=== PATIENT | female | born 1985 | race Caucasian/White ===

== ENCOUNTER 2016-05-27 11:18 | Inpatient (IN) | payer OTHER ==
[~2016-05-27] VITALS: Ht 157.5 cm; Wt 57.7 kg
[2016-05-27 12:08] LABS: MEAN CORPUSCULAR HEMOGLOBIN 28.2 pg (27.0-33.0); MEAN CORPUSCULAR HGB CONC 31.6 g/dl (32.0-36.5); MEAN CORPUSCULAR VOLUME 89.4 fl (80.0-96.0); RED CELL DISTRIBUTION WIDTH 14.5 % (11.5-14.5); WHITE BLOOD COUNT 4.9 K/mm3 (4.0-10.0)
[2016-05-27 12:12] LABS: AMPHETAMINES LEVEL URINE NEGATIVE (NEGATIVE); BENZODIAZEPINES URINE NEGATIVE (NEGATIVE); COCAINE METABOLITE URINE NEGATIVE (NEGATIVE); CONTROL LINE INT CTR LINE PRESENT; METHADONE URINE NEGATIVE (NEGATIVE); OPIATES URINE NEGATIVE (NEGATIVE); TRICYCLIC ANTIDEPRESS URINE NEGATIVE (NEGATIVE)
[2016-05-27 12:34] LABS: ALBUMIN 3.9 GM/DL (3.2-5.2); ALBUMIN/GLOBULIN RATIO 1.11 (1.00-1.93); ALKALINE PHOSPHATASE 79 U/L (45-117); ALT/SGPT 15 U/L (12-78); ANION GAP 9 MEQ/L (8-16); AST/SGOT 11 U/L (15-37); BILIRUBIN,DIRECT 0.2 MG/DL (0.0-0.2); BILIRUBIN,TOTAL 0.5 MG/DL (0.2-1.0); BLOOD UREA NITROGEN 16 MG/DL (7-18); CALCIUM LEVEL 9.1 MG/DL (8.5-10.1); CARBON DIOXIDE LEVEL 27 MEQ/L (21-32); CHLORIDE LEVEL 106 MEQ/L (98-107); CREATININE FOR GFR 0.71 MG/DL (0.55-1.02); GLOMERULAR FILTRATION RATE > 60.0 (>60); GLUCOSE, FASTING 87 MG/DL (70-105); SODIUM LEVEL 142 MEQ/L (136-145); TOTAL PROTEIN 7.4 GM/DL (6.4-8.2)
[2016-05-27] MEDS ORDERED: IBUPOTC PO (14:34)
--- NOTE | 2016-05-27 16:09 | EDDOCDS ---
Physician Documentation [facility] Name: Lilibeth Mcneill Age: 30 yrs Sex: Female : 1985 Arrival Date: 05/27/2016 Time: 11:18 Bed [facility] MD: Yousuf Bird MD Disposition: 05/27 16:03 Critical Care: Critical care not applicable. pc Disposition: 05/27/16 16:04 Hospitalization ordered by Jose Manuel Escamilla for Inpatient Admission. Preliminary diagnosis are Major depressive disorder, recurrent, moderate, Suicidal ideations. - Bed requested for Admit. - Status is Inpatient Admission. kcs - Condition is Stable. - Problem is new. - Symptoms are unchanged. HPI: 12:23 This 30 yrs old Female presents to ER via Walkin/Carried/Asstd with complaints of Psych pc Problem. 12:23 The history is obtained from the patient. The patient presents to the emergency pc department with suicidal ideation, depression. 16:00 She was brought in by police after calling a clinic and making SI statements. She is pc tearful and admits to SI. The patient has not experienced similar symptoms in the past. Historical: - Allergies: Morphine (Hives, Swelling); - Home Meds: 1. none - PMHx: Anxiety; Depression; Bipolar disorder; - PSHx: ; Lumpectomy- Left; - The history from nurses notes was reviewed: and I agree with what is documented. - Social history: Smoking status: Patient states former smoker of tobacco. No barriers to communication noted, The patient speaks fluent Arabic, Patient uses street drugs, marijuana. - : The pt / caregiver states he / she is not on anticoagulants. Home medication list is obtained from the patient. - Hospitalizations: : No recent hospitalization is reported. - Exposure Risk Screening:: None identified. - Immunization history:: All immunizations up-to-date. - Family history: Not pertinent. - Social history:: the patient smokes cigarettes the patient drinks alcohol. 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 The psychiatric and neurological components pc are also addressed in the HPI. Exam: 16:03 General Appearance: alert, mild distress. pc 16:03 ENT: ear, nose and throat normal, pharynx normal. 16:03 Eyes: pupils equal, round and reactive to light, extraocular motions intact. 16:03 Neck: The exam reveals no acute abnormalities. ROM is normal and painless. No nuchal rigidity is noted.. 16:03 Respiratory: breathing is even and unlabored, breath sounds are normal. 16:03 Cardiovascular: regular pulse rate, regular heart rhythm, normal heart sounds, equal and full pulses bilaterally. 16:03 Abdomen: soft, non-tender, no organomegaly, normal bowel sounds. 16:03 Skin: skin color is normal, warm, dry. 16:03 Extremities: The extremities have a grossly normal appearance, are non-tender, without acute ROM abnormalities. 16:03 Neuro: alert, oriented to person, place and time, cranial nerves normal as tested, no motor deficits, no sensory deficits. 16:03 Psych: mood is depressed, suicidal, tearful, affect is flat. Vital Signs: 11:19 BP 134 / 84; Pulse 59; Resp 18; Temp 97.1; Pulse Ox 99% ; Weight 52.16 kg / 114.99 lbs; kcs Height 5 ft. 2 in. (157.48 cm); Pain 0/10; 16:06 BP 136 / 78; Pulse 60; Resp 18; Temp 97.2; Pulse Ox 97% on R/A; dpm 11:19 Body Mass Index 21.03 (52.16 kg, 157.48 cm) kcs MDM: 11:43 Consult PFS/PSA/Topographical Engineer ordered. kcs 11:43 Consult PFS/PSA/Topographical Engineer: Patient's case requires discussion with on-call kcs Psychiatrist ordered. 11:43 PSA/PFS to call Nursing Insurance Producer, to enter patient data on [place] Safe Act if patient kcs involuntarily admitted or transferred for SI or HI ordered. 11:43 Confirm accurate psychiatric medication list and times of last dosage ordered. kcs 11:43 Detain Pt Until Medically/PFS Cleared ordered. kcs 11:44 Acetaminophen Level Ordered. EDMS 11:44 Basic Metabolic Profile Ordered. EDMS 11:44 Complete Blood Count Ordered. EDMS 11:44 Drug Eval Toxicology ED Only Ordered. EDMS 11:44 Ethyl Alcohol (ethanol) Ordered. EDMS 11:44 Liver Profile Ordered. EDMS 11:44 Salicylate Level Ordered. EDMS 11:44 Thyroid Stimulating Hormone Ordered. EDMS 11:54 REGULAR DIET PLASTIC TEJEDA+DIET ordered. EDMS 12:35 Financial registration complete. mm15 12:53 [facility] Payment Agreement was scanned into [employer] and attached to record. mm15 13:38 Admit to IM: ordered. EDMS 13:40 Acetaminophen Level Reviewed. pc 13:40 Complete Blood Count Reviewed. pc 13:40 Drug Eval Toxicology ED Only Reviewed. pc 13:40 Liver Profile Reviewed. pc 13:40 Salicylate Level Reviewed. pc 13:40 Basic Metabolic Profile Reviewed. pc 13:40 Ethyl Alcohol (ethanol) Reviewed. pc 13:40 Thyroid Stimulating Hormone Reviewed. pc 14:46 Consult PFS/PSA/Topographical Engineer complete. jfb 14:46 Consult PFS/PSA/Topographical Engineer: Patient's case requires discussion with on-call jfb Psychiatrist complete. 14:46 PSA/PFS to call Nursing Insurance Producer, to enter patient data on [place] Safe [place] if patient jfb involuntarily admitted or transferred for SI or HI complete. 14:56 [facility] Legal paperwork was scanned into [employer] and attached to record. jfb 16:03 Differential diagnosis: depression, suicidal ideation. Plan: labs, PFS eval. The pc patient has been medically cleared for psychiatric evaluation, admission and/or transfer. [place] Safe Act reporting: The patient poses a significant risk to self or others, and PSA/PFS has notified the Nursing Insurance Producer and he/she will complete the required director oracle database. Data reviewed: old medical records, vital signs, nurses notes, lab test results. Test interpretation: LAB - all labs as ordered have been reviewed, interpreted and considered in the overall management of the clinical presentation;. The patient has been re-examined and re-evaluated. There is no appreciated change of the patient's symptoms at this time. Disposition: The historical points, examination findings, and any diagnostic results supporting the provided diagnosis, were discussed with the patient or legal guardian. The need for further work-up and/or treatment in the hospital was explained. Signatures: Dispatcher [employer] EDMS Ryder Shepherd MD MD pc Sleeman, Kacey, RN RN kcs Bush, Julie, PSA PSA Felicitas Mujica mm15 The chart was reviewed and I authenticate all verbal orders and agree with the evaluation and treatment provided.Attachments: 12:53 [facility] Payment Agreement mm15 MTDD
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
[2016-05-27 16:21] VITALS: BP 136/78
[2016-05-27] MEDS ORDERED: QUEtiapine FUMARATE 12.5 MG HALF-TAB PO PRN (17:30)
[2016-05-27] MEDS ORDERED: MAALOX 30 ML SUSP *UDC PO PRN (17:30)
[2016-05-27] MEDS ORDERED: MOM 30ML SUSPENSION UDC PO PRN (17:30)
[2016-05-27] MEDS: traZODone 50 MG TAB PO PRN (22:06)
[2016-05-28] MEDS: ACETAMINOPHEN TAB 650MG DOSE (2X325MG) PO PRN (05:09)
[2016-05-28 06:39] VITALS: BP 104/55
--- NOTE | 2016-05-28 10:34 | HPEPDOC ---
[facility] History & Physical History and Physical DATE OF ADMISSION: May 27, 2016 at 16:18 CHIEF COMPLAINT: "Me just swallowing things for the longest time", My in the is hard to get help". Pt. states she told her doctor that she had suicidal ideation. Pt. states "I would never do anything, but I wouldn't mind if it just happened to me". HISTORY OF THE PRESENT ILLNESS: Pt. feels her problems started when she got drunk Thursday night. Pt. does not feel that her actively listens to her. 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 Pt. states they cannot afford daycare/preschool at this time. Pt. would like to go to marital therapy with , not sure he will go. Pt. also feels her dysfunctional childhood plays a role. Pt. encouraged to work on these issues in therapy. PAST PSYCHIATRIC HISTORY: Pt. states she was diagnosed with BPD, PTSD at 12 yo after maternal grandmother's , "She raised me as my mom didn't want me". Pt. states she saw a counselor for 6 months to a year and was started on meds. Pt. states she saw 3-4 different therapists until she was admitted at age [age] to a psych unit for post depression. Pt. states this happened about 2 months after the of her daughter. Pt. denies further psychiatric help until this admission. MEDICAL HISTORY: Pt. denies, feels she is healthy. HOME MEDICATIONS: Please see below. None per patient. ALLERGIES: Please see below. FAMILY PSYCHIATRIC HISTORY: Pt. states her mom, maternal grandma and great grandma all had been diagnosed with BPD, Anxiety. Pt. states dad has BPD, anxiety. Pt. does not know of any other familial history. SOCIAL HISTORY: Pt. is currently to her 2nd . Pt. has a 4 yo son and 2 yo daughter from this relationship. Pt. has an 8 yo son from her marriage to her first . Pt. also has a 14 yo daughter that started living with her godmother in October 2015. 8yo son was picked up by his father today to live with him for awhile in [place]. Pt. has a toxic relationship with her mom, has not spoken with her in 5 years. Pt. has a closer relationship with her dad and talks with him every few months. SUBSTANCE ABUSE HISTORY: Pt. experimented as a teen, no further use. In light of recent events may consider not drinking. LEGAL HISTORY: Pt. denies. VITAL SIGNS: Blood pressure 104/55, pulse 79, respirations 18, temperature 97.1 LABORATORY DATA: Please see below. MENTAL STATUS EXAMINATION: Pt. is a 30 year-old female who is pleasant, cooperative, wearing hospital scrubs, well kempt of shorter, thin build. Speech: Is circumstantial, at a normal rat and volume. Pt. is articulate, coherent and spontaneous. Thought processes: Clear, Goal directed. Rate of thoughts: Normal Thought content: Logical, rational. Abstract reasoning: Adequate. Computation:Adequate. Associations: Intact. Abnormal or psychotic thoughts: Pt. denies hallucinations, delusions, Homicidal or suicidal ideation, and obsessions or compulsions. Judgment: Fair. Insight: Fair. Oriented to: Time, place, person and surroundings. Recent and Remote Memory: Pt. feels she has some issues with immediate and short -term memory, worse when stressed. Attention Span and Concentration: Good. Language: Normal. Fund of knowledge: Adequate. Mood: "Like a roller coaster today with my son being picked up"; rational, sad. Affect: Appropriate, rational, sad. ASSESSMENT: Pt. is noted to be out of her room, engaging with others on the unit. Pt. has been attending unit programming and activities. Patient appears to be adjusting to unit well. Patient denies all suicidal and homicidal ideation. Patient denies psychotic features such as hallucinations, delusions, paranoia, obsessions or compulsions. Patient states when she is ready for discharge [place] DIAGNOSES: 1. Bipolar disorder, depressive type 2. PTSD 3. Insomnia PROBLEM LIST: 1. Ineffective coping 2. Depression/anxiety. MANAGEMENT PLAN: Will monitor patient for medication side effects and effectiveness. Maintain safety precautions, patient to attend groups and participate in unit programming to develop coping strategies, patient to be engaged in discharge planning process to ensure safe and effective discharge plan, patient to follow- up with primary care in [place] upon discharge, patient to schedule and attend therapy visits. ESTIMATED LENGTH OF STAY: 5-7 days. Laboratory Data 24H Labs Laboratory Tests 2 05/27/16 11:53: Acetaminophen Level < 2.0L, Aspartate Amino Transf (AST/SGOT) 11L, Alanine Aminotransferase (ALT/SGPT) 15, Alkaline Phosphatase 79, Total Bilirubin 0.5, Direct Bilirubin 0.2, Albumin 3.9, Albumin/Globulin Ratio 1.11, Anion Gap 9, Calcium Level 9.1, Ethyl Alcohol Level < 0.003, Glomerular Filtration Rate > 60.0, Salicylates Level < 1.7L, Thyroid Stimulating Hormone (TSH) 0.976, Total Protein 7.4, Urine Amphetamine Level NEGATIVE, Urine Benzodiazepines Screen NEGATIVE, Urine Cannabinoids POSITIVEH, Urine Cocaine Metabolite NEGATIVE, Urine Opiates Screen NEGATIVE, Urine Barbiturates, Qualitative NEGATIVE, Urine Methadone Screen NEGATIVE, Urine Tricyclic Antidepressants NEGATIVE CBC/BMP Laboratory Tests 05/27/16 11:53 Red Blood Count 4.40, Mean Corpuscular Volume 89.4, Mean Corpuscular Hemoglobin 28.2, Mean Corpuscular Hemoglobin Concent 31.6 L, Red Cell Distribution Width 14.5 Medications Scheduled PRN Ibuprofen (Ibuprofen) 200 Mg Tab 800 MG PO Q8H PRN PRN HEADACHE (Reported) Allergies Coded Allergies: Morphine (Unverified Allergy, Unknown, HIVES, 05/27/16) JAX MURDOCK NP May 28, 2016 10:34
--- NOTE | 2016-05-28 11:00 | HPEPDOC ---
Medical History and Physical Date of Admission May 27, 2016 at 16:18 History and Physical PCP: Dr Ledy Bird ATTENDING: Dr. Eduard Ferrell HPI: 30[facility]F [facility], being medically examined today. No acute medical complaints today. Denies any fevers, chills, weakness, fatigue, CLEMENS, CP, SOB, cough, palpitations, abdominal pain, N/V/D or changes in bowel or bladder habits. PMHx: Anxiety Depression Bipolar disorder PSHX: 2 Left lumpectomy SOCHX: Resides in: [place] Marital Status: Kids: 4 Employment: Unemployed Tobacco use: One pack per day, states quit 5 days ago ETOH: 2 days per week 1-2 drinks Illicit Drugs: Marijuana monthly IV Drug Use: Denies Tattoos done unprofessionally: 1 States screened for hepatitis/HIV 2014, negative. Declines rescreening FAMHX: Mother: Alive, well Father: Alive, well Siblings: One brother Alive, unknown Children: Alive, well Unexpected deaths due to medical reasons: None. ROS: As noted in HPI, otherwise 11pt ROS of systems reviewed and remarkable only for LMP 05/22/16 PE: GEN: 30 yo F, appears stated age. Well-nourished, well developed. No acute distress. Alert and oriented x 3. Pleasant, interactive. HEENT: Normocephalic, atraumatic. Pupils are equal, round, and reactive to light. Extraocular movements are intact. No nystagmus appreciated. Sclera are nonicteric. Conjunctiva without injection. Nose midline. Nasal turbinates without bogginess. EACs both patent BL. TMs both visualized and bunch with good cone of light, no bulging or erythema. No facial asymmetry. Moist mucous membranes. Dentition fair. Pharynx pink and moist, no cobblestoning. Neck supple , trachea midline. No lymphadenopathy or thyromegaly appreciated. CHEST: Regular rate and rhythm, +S1, +S2 LUNGS: Clear to auscultation bilaterally. No wheezes, rales, or rhonchi. Breathing appears symmetric and easy. Patient is speaking in full sentences. No accessory muscle use. ABD: Round, soft, non-tender, non-distended. +Bowel sounds throughout. No rebound or guarding. No costovertebral angle tenderness. EXT: Pulses 2+ bilaterally dorsalis pedis and radial. No lower extremity edema appreciated. SKIN: [place], dry, warm. Capillary refill <2sec. No rashes. NEURO: Alert and oriented x 3. Cranial nerves III-XII are intact. No focal deficits appreciated. EKG: pending A&P: 30yoF [facility] 1. Psych. Plan per Psychiatry. Obtain baseline EKG to assure the safety of psychiatric medications as they can prolong the QT interval. 2. Nicotine dependence. Patch available. 3. Follow up with PCP on discharge. 4. Cannabinoid use. 5. Add hCG to admission labs 6. Staff member present throughout examination, CORRINE Benitez. Vital Signs Vital Signs Label Value Date Time Patient Temperature 97.1 degrees F 05/28/16 0639 Temperature Source Tympanic 05/28/16 0639 Pulse 79 05/28/16 0639 Respiratory Rate 18 bpm 05/28/16 0639 Blood Pressure Assessment 104/55 (71) 05/28/16 0639 Laboratory Data Labs 24H Laboratory Tests 2 05/27/16 11:53: Acetaminophen Level < 2.0L, Aspartate Amino Transf (AST/SGOT) 11L, Alanine Aminotransferase (ALT/SGPT) 15, Alkaline Phosphatase 79, Total Bilirubin 0.5, Direct Bilirubin 0.2, Albumin 3.9, Albumin/Globulin Ratio 1.11, Anion Gap 9, Calcium Level 9.1, Ethyl Alcohol Level < 0.003, Glomerular Filtration Rate > 60.0, Salicylates Level < 1.7L, Thyroid Stimulating Hormone (TSH) 0.976, Total Protein 7.4, Urine Amphetamine Level NEGATIVE, Urine Benzodiazepines Screen NEGATIVE, Urine Cannabinoids POSITIVEH, Urine Cocaine Metabolite NEGATIVE, Urine Opiates Screen NEGATIVE, Urine Barbiturates, Qualitative NEGATIVE, Urine Methadone Screen NEGATIVE, Urine Tricyclic Antidepressants NEGATIVE CBC/BMP Laboratory Tests 05/27/16 11:53 Red Blood Count 4.40, Mean Corpuscular Volume 89.4, Mean Corpuscular Hemoglobin 28.2, Mean Corpuscular Hemoglobin Concent 31.6 L, Red Cell Distribution Width 14.5 Home Medications Scheduled PRN Ibuprofen (Ibuprofen) 200 Mg Tab 800 MG PO Q8H PRN PRN HEADACHE Allergies Coded Allergies: Morphine (Unverified Allergy, Unknown, HIVES, 05/27/16) Verenice Ridley May 28, 2016 11:00 Morphine (Unverified Allergy, Unknown, HIVES, 05/27/16) Verenice Ridley May 28, 2016 11:00
[2016-05-28] MEDS ORDERED: hydrOXYzine 50 MG TAB PO STA (11:29)
[2016-05-28 11:48] LABS: CONTROL LINE HCG INT CTR LINE PRESENT
[2016-05-28 18:00] VITALS: BP 107/56
[2016-05-28] MEDS: hydrOXYzine 50 MG TAB PO PRN (18:12)
[2016-05-28] MEDS: traZODone 50 MG TAB PO PRN (21:58)
[2016-05-28] MEDS ORDERED: traZODone 50 MG TAB PO ONE (23:00)
[2016-05-29 06:45] VITALS: BP 103/64
[2016-05-29] MEDS: hydrOXYzine 50 MG TAB PO PRN ×3 (08:33→23:28)
--- NOTE | 2016-05-29 08:37 | ECGEPIP ---
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
[2016-05-29] MEDS: ACETAMINOPHEN TAB 650MG DOSE (2X325MG) PO PRN (11:48)
--- NOTE | 2016-05-29 17:09 | EDDOCDS ---
Physician Documentation [facility] Name: Lilibeth Mcneill Age: 30 yrs Sex: Female : 1985 Arrival Date: 05/27/2016 Time: 11:18 Bed [facility] MD: Yousuf Bird MD Disposition: 05/27 16:03 Critical Care: Critical care not applicable. pc Disposition: 05/27/16 16:04 Hospitalization ordered by Jose Manuel Escamilla for Inpatient Admission. Preliminary diagnosis are Major depressive disorder, recurrent, moderate, Suicidal ideations. - Bed requested for Admit. - Status is Inpatient Admission. kcs - Condition is Stable. - Problem is new. - Symptoms are unchanged. HPI: 12:23 This 30 yrs old Female presents to ER via Walkin/Carried/Asstd with complaints of Psych pc Problem. 12:23 The history is obtained from the patient. The patient presents to the emergency pc department with suicidal ideation, depression. 16:00 She was brought in by police after calling a clinic and making SI statements. She is pc tearful and admits to SI. The patient has not experienced similar symptoms in the past. Historical: - Allergies: Morphine (Hives, Swelling); - Home Meds: 1. none - PMHx: Anxiety; Depression; Bipolar disorder; - PSHx: ; Lumpectomy- Left; - The history from nurses notes was reviewed: and I agree with what is documented. - Social history: Smoking status: Patient states former smoker of tobacco. No barriers to communication noted, The patient speaks fluent Telugu, Patient uses street drugs, marijuana. - : The pt / caregiver states he / she is not on anticoagulants. Home medication list is obtained from the patient. - Hospitalizations: : No recent hospitalization is reported. - Exposure Risk Screening:: None identified. - Immunization history:: All immunizations up-to-date. - Family history: Not pertinent. - Social history:: the patient smokes cigarettes the patient drinks alcohol. 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 The psychiatric and neurological components pc are also addressed in the HPI. Exam: 16:03 General Appearance: alert, mild distress. pc 16:03 ENT: ear, nose and throat normal, pharynx normal. 16:03 Eyes: pupils equal, round and reactive to light, extraocular motions intact. 16:03 Neck: The exam reveals no acute abnormalities. ROM is normal and painless. No nuchal rigidity is noted.. 16:03 Respiratory: breathing is even and unlabored, breath sounds are normal. 16:03 Cardiovascular: regular pulse rate, regular heart rhythm, normal heart sounds, equal and full pulses bilaterally. 16:03 Abdomen: soft, non-tender, no organomegaly, normal bowel sounds. 16:03 Skin: skin color is normal, warm, dry. 16:03 Extremities: The extremities have a grossly normal appearance, are non-tender, without acute ROM abnormalities. 16:03 Neuro: alert, oriented to person, place and time, cranial nerves normal as tested, no motor deficits, no sensory deficits. 16:03 Psych: mood is depressed, suicidal, tearful, affect is flat. Vital Signs: 11:19 BP 134 / 84; Pulse 59; Resp 18; Temp 97.1; Pulse Ox 99% ; Weight 52.16 kg / 114.99 lbs; kcs Height 5 ft. 2 in. (157.48 cm); Pain 0/10; 16:06 BP 136 / 78; Pulse 60; Resp 18; Temp 97.2; Pulse Ox 97% on R/A; dpm 11:19 Body Mass Index 21.03 (52.16 kg, 157.48 cm) kcs MDM: 11:43 Consult PFS/PSA/Laser Operator ordered. kcs 11:43 Consult PFS/PSA/Laser Operator: Patient's case requires discussion with on-call kcs Psychiatrist ordered. 11:43 PSA/PFS to call Nursing Coverage Specialist Rn, to enter patient data on [place] Safe [place] if patient kcs involuntarily admitted or transferred for SI or HI ordered. 11:43 Confirm accurate psychiatric medication list and times of last dosage ordered. kcs 11:43 Detain Pt Until Medically/PFS Cleared ordered. kcs 11:44 Acetaminophen Level Ordered. EDMS 11:44 Basic Metabolic Profile Ordered. EDMS 11:44 Complete Blood Count Ordered. EDMS 11:44 Drug Eval Toxicology ED Only Ordered. EDMS 11:44 Ethyl Alcohol (ethanol) Ordered. EDMS 11:44 Liver Profile Ordered. EDMS 11:44 Salicylate Level Ordered. EDMS 11:44 Thyroid Stimulating Hormone Ordered. EDMS 11:54 REGULAR DIET PLASTIC TEJEDA+DIET ordered. EDMS 12:35 Financial registration complete. mm15 12:53 [facility] Payment Agreement was scanned into [employer] and attached to record. mm15 13:38 Admit to IM: ordered. EDMS 13:40 Acetaminophen Level Reviewed. pc 13:40 Complete Blood Count Reviewed. pc 13:40 Drug Eval Toxicology ED Only Reviewed. pc 13:40 Liver Profile Reviewed. pc 13:40 Salicylate Level Reviewed. pc 13:40 Basic Metabolic Profile Reviewed. pc 13:40 Ethyl Alcohol (ethanol) Reviewed. pc 13:40 Thyroid Stimulating Hormone Reviewed. pc 14:46 Consult PFS/PSA/Laser Operator complete. jfb 14:46 Consult PFS/PSA/Laser Operator: Patient's case requires discussion with on-call jfb Psychiatrist complete. 14:46 PSA/PFS to call Nursing Coverage Specialist Rn, to enter patient data [place] if patient jfb involuntarily admitted or transferred for SI or HI complete. 14:56 [facility] Legal paperwork was scanned into [employer] and attached to record. jfb 16:03 Differential diagnosis: depression, suicidal ideation. Plan: labs, PFS eval. The pc patient has been medically cleared for psychiatric evaluation, admission and/or transfer. [place] Safe Act reporting: The patient poses a significant risk to self or others, and PSA/PFS has notified the Nursing Coverage Specialist Rn and he/she will complete the required data warehouse developer. Data reviewed: old medical records, vital signs, nurses notes, lab test results. Test interpretation: LAB - all labs as ordered have been reviewed, interpreted and considered in the overall management of the clinical presentation;. The patient has been re-examined and re-evaluated. There is no appreciated change of the patient's symptoms at this time. Disposition: The historical points, examination findings, and any diagnostic results supporting the provided diagnosis, were discussed with the patient or legal guardian. The need for further work-up and/or treatment in the hospital was explained. Signatures: Dispatcher MedHo EDMS Ryder Shepherd MD MD pc Sleeman, Kacey, RN RN kcs Bush, Julie, PSA PSA Felicitas Mujica mm15 The chart was reviewed and I authenticate all verbal orders and agree with the evaluation and treatment provided.Attachments: 12:53 [facility] Payment Agreement mm15 Chart Complete MTDD
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
--- NOTE | 2016-05-29 17:09 | EDDOCDS ---
Physician Documentation [facility] Name: Lilibeth Mcneill Age: 30 yrs Sex: Female : 1985 Arrival Date: 05/27/2016 Time: 11:18 Bed [facility] MD: Yousuf Bird MD Disposition: 05/27 16:03 Critical Care: Critical care not applicable. pc Disposition: 05/27/16 16:04 Hospitalization ordered by Jose Manuel Escamilla for Inpatient Admission. Preliminary diagnosis are Major depressive disorder, recurrent, moderate, Suicidal ideations. - Bed requested for Admit. - Status is Inpatient Admission. kcs - Condition is Stable. - Problem is new. - Symptoms are unchanged. HPI: 12:23 This 30 yrs old Female presents to ER via Walkin/Carried/Asstd with complaints of Psych pc Problem. 12:23 The history is obtained from the patient. The patient presents to the emergency pc department with suicidal ideation, depression. 16:00 She was brought in by police after calling a clinic and making SI statements. She is pc tearful and admits to SI. The patient has not experienced similar symptoms in the past. Historical: - Allergies: Morphine (Hives, Swelling); - Home Meds: 1. none - PMHx: Anxiety; Depression; Bipolar disorder; - PSHx: ; Lumpectomy- Left; - The history from nurses notes was reviewed: and I agree with what is documented. - Social history: Smoking status: Patient states former smoker of tobacco. No barriers to communication noted, The patient speaks fluent Yoruba, Patient uses street drugs, marijuana. - : The pt / caregiver states he / she is not on anticoagulants. Home medication list is obtained from the patient. - Hospitalizations: : No recent hospitalization is reported. - Exposure Risk Screening:: None identified. - Immunization history:: All immunizations up-to-date. - Family history: Not pertinent. - Social history:: the patient smokes cigarettes the patient drinks alcohol. 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 The psychiatric and neurological components pc are also addressed in the HPI. Exam: 16:03 General Appearance: alert, mild distress. pc 16:03 ENT: ear, nose and throat normal, pharynx normal. 16:03 Eyes: pupils equal, round and reactive to light, extraocular motions intact. 16:03 Neck: The exam reveals no acute abnormalities. ROM is normal and painless. No nuchal rigidity is noted.. 16:03 Respiratory: breathing is even and unlabored, breath sounds are normal. 16:03 Cardiovascular: regular pulse rate, regular heart rhythm, normal heart sounds, equal and full pulses bilaterally. 16:03 Abdomen: soft, non-tender, no organomegaly, normal bowel sounds. 16:03 Skin: skin color is normal, warm, dry. 16:03 Extremities: The extremities have a grossly normal appearance, are non-tender, without acute ROM abnormalities. 16:03 Neuro: alert, oriented to person, place and time, cranial nerves normal as tested, no motor deficits, no sensory deficits. 16:03 Psych: mood is depressed, suicidal, tearful, affect is flat. Vital Signs: 11:19 BP 134 / 84; Pulse 59; Resp 18; Temp 97.1; Pulse Ox 99% ; Weight 52.16 kg / 114.99 lbs; kcs Height 5 ft. 2 in. (157.48 cm); Pain 0/10; 16:06 BP 136 / 78; Pulse 60; Resp 18; Temp 97.2; Pulse Ox 97% on R/A; dpm 11:19 Body Mass Index 21.03 (52.16 kg, 157.48 cm) kcs MDM: 11:43 Consult PFS/PSA/[employer] ordered. kcs 11:43 Consult PFS/PSA/[employer]: Patient's case requires discussion with on-call kcs Psychiatrist ordered. 11:43 PSA/PFS to call Nursing Extrusion Die Corrector, to enter patient data on [place] Safe Act if patient kcs involuntarily admitted or transferred for SI or HI ordered. 11:43 Confirm accurate psychiatric medication list and times of last dosage ordered. kcs 11:43 Detain Pt Until Medically/PFS Cleared ordered. kcs 11:44 Acetaminophen Level Ordered. EDMS 11:44 Basic Metabolic Profile Ordered. EDMS 11:44 Complete Blood Count Ordered. EDMS 11:44 Drug Eval Toxicology ED Only Ordered. EDMS 11:44 Ethyl Alcohol (ethanol) Ordered. EDMS 11:44 Liver Profile Ordered. EDMS 11:44 Salicylate Level Ordered. EDMS 11:44 Thyroid Stimulating Hormone Ordered. EDMS 11:54 REGULAR DIET PLASTIC TEJEDA+DIET ordered. EDMS 12:35 Financial registration complete. mm15 12:53 [facility] Payment Agreement was scanned into [employer] and attached to record. mm15 13:38 Admit to IM: ordered. EDMS 13:40 Acetaminophen Level Reviewed. pc 13:40 Complete Blood Count Reviewed. pc 13:40 Drug Eval Toxicology ED Only Reviewed. pc 13:40 Liver Profile Reviewed. pc 13:40 Salicylate Level Reviewed. pc 13:40 Basic Metabolic Profile Reviewed. pc 13:40 Ethyl Alcohol (ethanol) Reviewed. pc 13:40 Thyroid Stimulating Hormone Reviewed. pc 14:46 Consult PFS/PSA/[employer] complete. jfb 14:46 Consult PFS/PSA/[employer]: Patient's case requires discussion with on-call jfb Psychiatrist complete. 14:46 PSA/PFS to call Nursing Extrusion Die Corrector, to enter patient data on [place] Safe [place] if patient jfb involuntarily admitted or transferred for SI or HI complete. 14:56 [facility] Legal paperwork was scanned into [employer] and attached to record. jfb 16:03 Differential diagnosis: depression, suicidal ideation. Plan: labs, PFS eval. The pc patient has been medically cleared for psychiatric evaluation, admission and/or transfer. [place] Safe Act reporting: The patient poses a significant risk to self or others, and PSA/PFS has notified the Nursing Extrusion Die Corrector and he/she will complete the required data officer. Data reviewed: old medical records, vital signs, nurses notes, lab test results. Test interpretation: LAB - all labs as ordered have been reviewed, interpreted and considered in the overall management of the clinical presentation;. The patient has been re-examined and re-evaluated. There is no appreciated change of the patient's symptoms at this time. Disposition: The historical points, examination findings, and any diagnostic results supporting the provided diagnosis, were discussed with the patient or legal guardian. The need for further work-up and/or treatment in the hospital was explained. Signatures: Dispatcher [employer] EDMS Ryder Shepherd MD MD pc Sleeman, Kacey, RN RN kcs Bush, Julie, PSA PSA Felicitas Mujica mm15 The chart was reviewed and I authenticate all verbal orders and agree with the evaluation and treatment provided.Attachments: 12:53 [facility] Payment Agreement mm15 Chart Complete MTDD
--- NOTE | 2016-05-29 17:18 | IPNPDOC ---
[facility] Progress Note Progress Note DATE OF SERVICE: 05/29/16 HISTORY: "Me just swallowing things for the longest time", My in the is hard to get help". Pt. states she told her doctor that she had suicidal ideation. Pt. states "I would never do anything, but I wouldn't mind if it just happened to me". Pt. feels her problems started when she got drunk Thursday night. Pt. does not feel that her actively listens to her. 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 Pt. states they cannot afford daycare/preschool at this time. Pt. would like to go to marital therapy with , not sure he will go. Pt. also feels her dysfunctional childhood plays a role. Pt. encouraged to work on these issues in therapy. PAST PSYCHIATRIC HISTORY: Pt. states she was diagnosed with BPD, PTSD at 12 yo after maternal grandmother's , "She raised me as my mom didn't want me". Pt. states she saw a counselor for 6 months to a year and was started on meds. Pt. states she saw 3-4 different therapists until she was admitted at age [age] to a psych unit for post depression. Pt. states this happened about 2 months after the of her daughter. Pt. denies further psychiatric help until this admission. MEDICAL HISTORY: Pt. denies, feels she is healthy. HOME MEDICATIONS: Please see below. None per patient. ALLERGIES: Please see below. FAMILY PSYCHIATRIC HISTORY: Pt. states her mom, maternal grandma and great grandma all had been diagnosed with BPD, Anxiety. Pt. states dad has BPD, anxiety. Pt. does not know of any other familial history. SOCIAL HISTORY: Pt. is currently to her 2nd . Pt. has a 4 yo son and 2 yo daughter from this relationship. Pt. has an 8 yo son from her marriage to her first . Pt. also has a 14 yo daughter that started living with her godmother in October 2015. 8yo son was picked up by his father today to live with him for awhile in [place]. Pt. has a toxic relationship with her mom, has not spoken with her in 5 years. Pt. has a closer relationship with her dad and talks with him every few months. SUBSTANCE ABUSE HISTORY: Pt. experimented as a teen, no further use. In light of recent events may consider not drinking. LEGAL HISTORY: Pt. denies. VITAL SIGNS: Please see below. 96.5 76 16 103/64 NEW TEST RESULTS: NA CURRENT MEDICATIONS: See below. Hydroxyzine Hcl 50 mg po q 6h prn anxiety/ agitation, Trazodone 50 mg po qhs prn for insomnia MENTAL STATUS EXAMINATION: Pt. is a 30 year-old female who is pleasant, cooperative, wearing her own clothing, well kempt of shorter, thin build. Speech: Is circumstantial, at a increased rate and normal volume. Pt. is articulate, coherent and spontaneous. Thought processes: Clear, Goal directed. Rate of thoughts: Normal Thought content: Logical, rational. Abstract reasoning: Adequate. Computation:Adequate. Associations: Intact. Abnormal or psychotic thoughts: Pt. denies hallucinations, delusions, Homicidal or suicidal ideation, and obsessions or compulsions."I overthink everything and anything". Night terrors 6/7 nights. Judgment: Fair. Insight: Fair. Oriented to: Time, place, person and surroundings. Recent and Remote Memory: Pt. feels she has some issues with immediate and short -term memory, worse when stressed. Attention Span and Concentration: Good. Language: Normal. Fund of knowledge: Adequate. Mood: "It's pretty good"; rational, brighter. Pt. states she slept about 8.5 hours of "good, sound, sleep". Pt. denies night terrors. Pt. feels visit with went well. Affect: Appropriate, rational, slight glynn. DIAGNOSES: 1. Bipolar disorder, depressive type 2. PTSD 3. Insomnia ASSESSMENT: Pt. is noted to be out of her room, engaging with others on the unit. Pt. has been attending unit programming and activities. Patient appears to be adjusting to unit well. Patient denies all suicidal and homicidal ideation. Patient denies psychotic features such as hallucinations, delusions, paranoia, obsessions or compulsions. Patient states when she is ready for discharge [place]. MANAGEMENT PLAN: Will monitor patient for medication side effects and effectiveness. Maintain safety precautions, patient to attend groups and participate in unit programming to develop coping strategies, patient to be engaged in discharge planning process to ensure safe and effective discharge plan, patient to follow- up with primary care upon discharge, patient to schedule and attend therapy visits upon discharge. Vital Signs/I&O Vital Signs Date Time Temp Pulse Resp B/P Pulse Ox O2 Delivery O2 Flow Rate FiO2 05/29/16 06:45 96.5 76 16 103/64 Current Medications Current Medications Acetaminophen (Tylenol) 650 mg Q6HP PRN PO HEADACHE or DISCOMFORT Last administered on 05/29/16 11:48; Start 05/27/16 at 17:30; Stop 06/26/16 at 17:29 Al Hydrox/Mg Hydrox/Simethicone (Mylanta) 30 ml Q4HP PRN PO HEARTBURN/ INDIGESTION; Start 05/27/16 at 17:30; Stop 06/26/16 at 17:29 Home Med (Med Rec Complete!) ASDIRECTED XX ; Start 05/27/16 at 14:45; Stop at 14:45; Status DC Hydroxyzine HCl (Atarax) 50 mg Q6HP PRN PO ANXIETY Last administered on 15:04; Start 05/28/16 at 17:30; Stop 06/27/16 at 17:29 Hydroxyzine HCl (Atarax) 50 mg STAT STAT PO Last administered on 05/28/16 11: 37; Start 05/28/16 at 11:29; Stop 05/28/16 at 11:30; Status DC Magnesium Hydroxide (Milk Of Magnesia) 30 ml DAILYPRN PRN PO CONSTIPATION; Start 05/27/16 at 17:30; Stop 06/26/16 at 17:29 Quetiapine Fumarate (SEROquel) 12.5 mg TIDP PRN PO ANXIETY; Start 05/27/16 at 17:30; Stop 05/28/16 at 17:27; Status DC Trazodone HCl (Desyrel) 50 mg ONCE ONCE PO ; Start 05/28/16 at 23:00; Stop at 23:01; Status DC Trazodone HCl (Desyrel) 50 mg QHSP PRN PO INSOMNIA Last administered on 21:58; Start 05/27/16 at 17:30; Stop 06/26/16 at 17:29 Allergies Coded Allergies: Morphine (Unverified Allergy, Unknown, HIVES, 05/27/16) JAX MURDOCK NP May 29, 2016 17:18
[2016-05-29 18:00] VITALS: BP 110/72
[2016-05-29] MEDS: traZODone 50 MG TAB PO PRN (21:49)
[2016-05-30 06:45] VITALS: BP 100/64
[2016-05-30] MEDS: hydrOXYzine 50 MG TAB PO PRN ×2 (11:53→20:10)
[2016-05-30 18:18] VITALS: BP 115/70
--- NOTE | 2016-05-30 18:51 | IPNPDOC ---
[facility] Progress Note Progress Note DATE OF SERVICE: 05/30/16 HISTORY: "Me just swallowing things for the longest time", My in the is hard to get help". Pt. states she told her doctor that she had suicidal ideation. Pt. states "I would never do anything, but I wouldn't mind if it just happened to me". Pt. feels her problems started when she got drunk Thursday night. Pt. does not feel that her actively listens to her. 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 Pt. states they cannot afford daycare/preschool at this time. Pt. would like to go to marital therapy with , not sure he will go. Pt. also feels her dysfunctional childhood plays a role. Pt. encouraged to work on these issues in therapy. PAST PSYCHIATRIC HISTORY: Pt. states she was diagnosed with BPD, PTSD at 12 yo after maternal grandmother's , "She raised me as my mom didn't want me". Pt. states she saw a counselor for 6 months to a year and was started on meds. Pt. states she saw 3-4 different therapists until she was admitted at age [age] to a psych unit for post depression. Pt. states this happened about 2 months after the of her daughter. Pt. denies further psychiatric help until this admission. MEDICAL HISTORY: Pt. denies, feels she is healthy. HOME MEDICATIONS: Please see below. None per patient. ALLERGIES: Please see below. FAMILY PSYCHIATRIC HISTORY: Pt. states her mom, maternal grandma and great grandma all had been diagnosed with BPD, Anxiety. Pt. states dad has BPD, anxiety. Pt. does not know of any other familial history. SOCIAL HISTORY: Pt. is currently to her 2nd . Pt. has a 4 yo son and 2 yo daughter from this relationship. Pt. has an 8 yo son from her marriage to her first . Pt. also has a 14 yo daughter that started living with her godmother in October 2015. 8yo son was picked up by his father today to live with him for awhile in [place]. Pt. has a toxic relationship with her mom, has not spoken with her in 5 years. Pt. has a closer relationship with her dad and talks with him every few months. SUBSTANCE ABUSE HISTORY: Pt. experimented as a teen, no further use. In light of recent events may consider not drinking. LEGAL HISTORY: Pt. denies. VITAL SIGNS: Please see below. 95.2 77 16 100/64 NEW TEST RESULTS: NA CURRENT MEDICATIONS: See below. Hydroxyzine Hcl 50 mg po q 6h prn anxiety/ agitation, Trazodone 50 mg po qhs prn for insomnia, may repeat x 1. MENTAL STATUS EXAMINATION: Pt. is a 30 year-old female who is pleasant, cooperative, wearing her own clothing, well kempt of shorter, thin build. Speech: Is circumstantial, at a normal rate and normal volume. Pt. is articulate, coherent and spontaneous. Thought processes: Clear, Goal directed. Rate of thoughts: Normal Thought content: Logical, rational. Abstract reasoning: Adequate. Computation:Adequate. Associations: Intact. Abnormal or psychotic thoughts: Pt. denies hallucinations, delusions, Homicidal or suicidal ideation, and obsessions or compulsions. Night terrors 6/7 nights. Judgment: Fair. Insight: Fair. Oriented to: Time, place, person and surroundings. Recent and Remote Memory: Pt. feels she has some issues with immediate and short -term memory, worse when stressed. Attention Span and Concentration: Good. Language: Normal. Fund of knowledge: Adequate. Mood: "[place], mostly good, overthinking stuff"; rational, clearer, brighter. Pt. states she slept about 1.5 hours, had a night terror, got hydroxyzine then was able to sleep another 5.5 hours without further dreams, of good sleep. Pt. feels visits with are going well. Pt. is slightly tearful when she states she misses her kids, but states she does not want to go home until she is well. Affect: Appropriate, rational, logical. DIAGNOSES: 1. Bipolar disorder, depressive type 2. PTSD 3. Insomnia ASSESSMENT: Pt. is noted to be out of her room, engaging with others on the unit. Pt. has been attending unit programming and activities. Patient appears to be adjusting to unit well. Patient denies all suicidal and homicidal ideation. Patient denies psychotic features such as hallucinations, delusions, paranoia, obsessions or compulsions. Patient states when she is ready for discharge [place] Pt. feels is now supportive of marital therapy. Pt. states she really found the yoga helpful to help her relax and re-focus. MANAGEMENT PLAN: Will monitor patient for medication side effects and effectiveness. Maintain safety precautions, patient to attend groups and participate in unit programming to develop coping strategies, patient to be engaged in discharge planning process to ensure safe and effective discharge plan. Patient encouraged to talk with kids daily if possible. Patient to follow-up with primary care upon discharge, patient to schedule and attend therapy visits/ medication management upon discharge. Vital Signs/I&O Vital Signs Date Time Temp Pulse Resp B/P Pulse Ox O2 Delivery O2 Flow Rate FiO2 05/30/16 18:18 96.7 74 16 115/70 Current Medications Current Medications Acetaminophen (Tylenol) 650 mg Q6HP PRN PO HEADACHE or DISCOMFORT Last administered on 05/29/16 11:48; Start 05/27/16 at 17:30; Stop 06/26/16 at 17:29 Al Hydrox/Mg Hydrox/Simethicone (Mylanta) 30 ml Q4HP PRN PO HEARTBURN/ INDIGESTION; Start 05/27/16 at 17:30; Stop 06/26/16 at 17:29 Home Med (Med Rec Complete!) ASDIRECTED XX ; Start 05/27/16 at 14:45; Stop at 14:45; Status DC Hydroxyzine HCl (Atarax) 50 mg Q6HP PRN PO ANXIETY Last administered on 11:53; Start 05/28/16 at 17:30; Stop 06/27/16 at 17:29 Hydroxyzine HCl (Atarax) 50 mg STAT STAT PO Last administered on 05/28/16t 11: 37; Start 05/28/16 at 11:29; Stop 05/28/16 at 11:30; Status DC Magnesium Hydroxide (Milk Of Magnesia) 30 ml DAILYPRN PRN PO CONSTIPATION; Start 05/27/16 at 17:30; Stop 06/26/16 at 17:29 Quetiapine Fumarate (SEROquel) 12.5 mg TIDP PRN PO ANXIETY; Start 05/27/16 at 17:30; Stop 05/28/16 at 17:27; Status DC Trazodone HCl (Desyrel) 50 mg ONCE ONCE PO ; Start 05/28/16 at 23:00; Stop at 23:01; Status DC Trazodone HCl (Desyrel) 50 mg QHSP PRN PO INSOMNIA Last administered on t 21:49; Start 05/27/16 at 17:30; Stop 06/26/16 at 17:29 Allergies Coded Allergies: Morphine (Unverified Allergy, Unknown, HIVES, 05/27/16) JAX MURDOCK NP May 30, 2016 18:51
[2016-05-30] MEDS: traZODone 50 MG TAB PO PRN (23:30)
[2016-05-31] MEDS: traZODone 50 MG TAB PO PRN ×2 (00:23→23:31)
[2016-05-31 06:33] VITALS: BP 110/58
[2016-05-31] MEDS: hydrOXYzine 50 MG TAB PO PRN ×3 (09:01→21:49)
[2016-05-31] MEDS: ACETAMINOPHEN TAB 650MG DOSE (2X325MG) PO PRN (17:15)
[2016-05-31 18:00] VITALS: BP 124/90
[2016-06-01 06:00] VITALS: BP 116/59
--- NOTE | 2016-06-01 08:37 | IPN ---
DATE: 05/31/2016 MEDICATIONS: - hydroxyzine 50 mg by mouth every six hours as needed for anxiety - trazodone 50 mg by mouth at bedtime as needed for insomnia SUBJECTIVE: "I'm feeling anxious but I don't know if I have to take the medicine." OBJECTIVE: The patient reports high anxiety but she does not want to take her as-needed medication as often since she was advised by her therapist not to do so. She is making statements such as "I don't know how I am going to improve," "I probably cannot do it without the medication." Patient is interacting with other patients and staff. She is labile. No evidence of psychotic symptoms. Denies any side effect from the medication when she takes it. MENTAL STATUS EXAMINATION: Patient is dressed in [facility]. Patient is cooperative during the examination. Speech is somewhat pressured. Mood is depressed and anxious. Affect is labile. No evidence of delusions or hallucinations. Memory is fair. Patient is fully oriented. Associations are intact. Thinking is logical. Thought content is appropriate. Patient is able to contract for safety during the interview. Insight and judgment is limited. ASSESSMENT: 1. Bipolar disorder, depressive type. 2. Posttraumatic stress disorder (PTSD). 3. Insomnia. PLAN: 1. Continue with Vistaril 50 mg by mouth every six hours as needed for anxiety. 2. Continue with trazodone 50 mg by mouth at bedtime as needed for insomnia. 3. Continue medication management, individual and group therapy.
[2016-06-01] MEDS: hydrOXYzine 50 MG TAB PO PRN ×2 (09:26→17:18)
[2016-06-01 18:00] VITALS: BP 119/64
[2016-06-01] MEDS: traZODone 50 MG TAB PO PRN ×2 (22:39)
[2016-06-02 06:37] VITALS: BP 117/52
[2016-06-02] MEDS: CETIRIZINE (ZyrTEC) 10 MG TAB PO SCH (09:00)
[2016-06-02] MEDS: hydrOXYzine 50 MG TAB PO PRN (11:47)
[2016-06-02] MEDS ORDERED: diphenhydrAMINE 50 MG CAP PO STA (14:20)
[2016-06-02 18:00] VITALS: BP 133/82
[2016-06-02] MEDS: PARoxetine 10MG TABLET PO SCH (19:04)
--- NOTE | 2016-06-02 19:30 | IPNPDOC ---
[facility] Progress Note Progress Note DATE OF SERVICE: 06/02/16 HISTORY: "Me just swallowing things for the longest time", My in the is hard to get help". Pt. states she told her doctor that she had suicidal ideation. Pt. states "I would never do anything, but I wouldn't mind if it just happened to me". Pt. feels her problems started when she got drunk Thursday night. Pt. does not feel that her actively listens to her. 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 Pt. states they cannot afford daycare/preschool at this time. Pt. would like to go to marital therapy with , not sure he will go. Pt. also feels her dysfunctional childhood plays a role. Pt. encouraged to work on these issues in therapy. PAST PSYCHIATRIC HISTORY: Pt. states she was diagnosed with BPD, PTSD at 12 yo after maternal grandmother's , "She raised me as my mom didn't want me". Pt. states she saw a counselor for 6 months to a year and was started on meds. Pt. states she saw 3-4 different therapists until she was admitted at age [age] to a psych unit for post depression. Pt. states this happened about 2 months after the of her daughter. Pt. denies further psychiatric help until this admission. MEDICAL HISTORY: Pt. denies, feels she is healthy. FAMILY PSYCHIATRIC HISTORY: Pt. states her mom, maternal grandma and great grandma all had been diagnosed with BPD, Anxiety. Pt. states dad has BPD, anxiety. Pt. does not know of any other familial history. SOCIAL HISTORY: Pt. is currently to her 2nd . Pt. has a 4 yo son and 2 yo daughter from this relationship. Pt. has an 8 yo son from her marriage to her first . Pt. also has a 14 yo daughter that started living with her godmother in October 2015. 8yo son was picked up by his father today to live with him for awhile in [place]. Pt. has a toxic relationship with her mom, has not spoken with her in 5 years. Pt. has a closer relationship with her dad and talks with him every few months. SUBSTANCE ABUSE HISTORY: Pt. experimented as a teen, no further use. In light of recent events may consider not drinking. LEGAL HISTORY: Pt. denies. VITAL SIGNS: Please see below. 97 80 16 117/52. CURRENT MEDICATIONS: See below. Hydroxyzine Hcl 50 mg po q 6h prn anxiety/ agitation, Trazodone 50 mg po qhs prn for insomnia, may repeat x 1. NEW TEST RESULTS: NA MENTAL STATUS EXAMINATION: Pt. is a 30 year-old female who is pleasant, cooperative, wearing her own clothing, well kempt of shorter, thin build. Speech: Is circumstantial, at a normal rate and normal volume. Pt. is articulate, coherent and spontaneous. Thought processes: Clear, Goal directed. Rate of thoughts: Normal Thought content: Logical, rational unless discussing , then becomes illogical, irrational. Abstract reasoning: Adequate. Computation:Adequate. Associations: Intact. Abnormal or psychotic thoughts: Pt. denies hallucinations, delusions, paranoia, homicidal or suicidal ideation and obsessions or compulsions. Night terrors 6/7 nights. Judgment: Fair. Insight: Fair. Oriented to: Time, place, person and surroundings. Recent and Remote Memory: Pt. feels she has some issues with immediate and short -term memory, worse when stressed or with lack of sleep. Attention Span and Concentration: Fair. Language: Normal. Fund of knowledge: Adequate. Mood: "Shitty, my visit with my last night was shitty, I asked him to leave, I don't believe him"; irrational/illogical, somewhat tearful when discussing , otherwise rational, logical, not labile. Pt. states she slept about 6 hours of good sleep. Pt. denies night terrors last night. Affect: Appropriate, rational, logical unless discussing her . DIAGNOSES: 1. Bipolar disorder, depressive type 2. PTSD 3. Insomnia ASSESSMENT: Pt. is noted to be out of her room, engaging with others on the unit. Pt. has been attending unit programming and activities. Patient continues to be adjusting to unit well. Patient denies all suicidal and homicidal ideation. Patient denies psychotic features such as hallucinations, delusions, paranoia, obsessions or compulsions. Patient states when she is ready for discharge [place] Pt. feels is now lying to her. Pt. was extremely upset when he told her he lost his wedding band. Pt. feels may be cheating on her again. Pt. had to re- directed multiple times. Of note: Pt. stated to provider that she thought she was allergic to something because of how her tongue and throat felt. Pt. complains of swollen tongue, sore throat, dizziness, difficulty swallowing. After discussion, pt. feels it may be pineapple from lunch. Pt. states "It didn't taste good". Discussed pt. symptoms with PA, Stat dose of benadryl 50 mg po ordered, zyrtec 10 mg po q am ordered as well per PA. PA will check on pt. tomorrow. Pt. aware that she is to notify staff of any worsening condition. MANAGEMENT PLAN: Will monitor patient for medication side effects and effectiveness. Maintain safety precautions, patient to attend groups and participate in unit programming to develop coping strategies, patient to be engaged in discharge planning process to ensure safe and effective discharge plan. Patient encouraged to talk with kids daily if possible. Patient to follow-up with primary care upon discharge, patient to schedule and attend therapy visits/ medication management upon discharge. TIME SPENT: 25 minutes Vital Signs/I&O Vital Signs Date Time Temp Pulse Resp B/P Pulse Ox O2 Delivery O2 Flow Rate FiO2 06/02/16 06:37 97.0 80 16 117/52 Current Medications Current Medications Acetaminophen (Tylenol) 650 mg Q6HP PRN PO HEADACHE or DISCOMFORT Last administered on 05/31/16t 17:15; Start 05/27/16 at 17:30; Stop 06/26/16 at 17:29 Al Hydrox/Mg Hydrox/Simethicone (Mylanta) 30 ml Q4HP PRN PO HEARTBURN/ INDIGESTION; Start 05/27/16 at 17:30; Stop 06/26/16 at 17:29 Cetirizine HCl (ZyrTEC) 10 mg DAILY PO ; Start 06/02/16 at 09:00; Stop 07/02/16 at 08:59 Diphenhydramine HCl (Benadryl) 50 mg Q6HP PRN PO ITCHING; Start 06/02/16 at 20: 00; Stop 07/02/16 at 19:59 Home Med (Med Rec Complete!) ASDIRECTED XX ; Start 05/27/16 at 14:45; Stop at 14:45; Status DC Hydroxyzine HCl (Atarax) 50 mg Q6HP PRN PO ANXIETY Last administered on 11:47; Start 05/28/16 at 17:30; Stop 06/27/16 at 17:29 Magnesium Hydroxide (Milk Of Magnesia) 30 ml DAILYPRN PRN PO CONSTIPATION; Start 05/27/16 at 17:30; Stop 06/26/16 at 17:29 Paroxetine HCl (PAXil) 10 mg QAM PO Last administered on 06/02/16 19:04; Start 06/02/16 at 09:00; Stop 07/02/16 at 08:59 Quetiapine Fumarate (SEROquel) 12.5 mg TIDP PRN PO ANXIETY; Start 05/27/16 at 17:30; Stop 05/28/16 at 17:27; Status DC Trazodone HCl (Desyrel) 50 mg QHSP PRN PO INSOMNIA Last administered on 22:39; Start 05/27/16 at 17:30; Stop 06/26/16 at 17:29 Allergies Coded Allergies: Pineapple (Verified Allergy, Intermediate, Swollen tongue, sore throat, ) Morphine (Unverified Allergy, Unknown, HIVES, 05/27/16) JAX MURDOCK NP Jun 02, 2016 19:30
[2016-06-02] MEDS ORDERED: diphenhydrAMINE 50 MG CAP PO PRN (20:00)
[2016-06-02] MEDS: traZODone 50 MG TAB PO PRN ×2 (22:30→23:30)
[2016-06-03 06:28] VITALS: BP 107/60
[2016-06-03] MEDS: CETIRIZINE (ZyrTEC) 10 MG TAB PO SCH (08:13)
[2016-06-03] MEDS: PARoxetine 10MG TABLET PO SCH (08:13)
[2016-06-03 18:00] VITALS: BP 120/78
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
[2016-06-03] MEDS: traZODone 50 MG TAB PO PRN ×2 (22:34→23:14)
[2016-06-04 06:32] VITALS: BP 130/77
[2016-06-04] MEDS: PARoxetine 10MG TABLET PO SCH (08:32)
[2016-06-04] MEDS: CETIRIZINE (ZyrTEC) 10 MG TAB PO SCH (08:32)
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
[2016-06-04 18:20] VITALS: BP 106/69
[2016-06-04] MEDS: traZODone 50 MG TAB PO PRN ×2 (22:33→22:59)
[2016-06-05 06:46] VITALS: BP 106/64
[2016-06-05] MEDS: PARoxetine 10MG TABLET PO SCH (07:59)
[2016-06-05] MEDS: CETIRIZINE (ZyrTEC) 10 MG TAB PO SCH (07:59)
[2016-06-05 18:00] VITALS: BP 128/75
[2016-06-05] MEDS ORDERED: traZODone 50 MG TAB PO PRN (19:00)
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
[2016-06-06 06:58] VITALS: BP 117/62
[2016-06-06] MEDS: CETIRIZINE (ZyrTEC) 10 MG TAB PO SCH (08:44)
[2016-06-06] MEDS: PARoxetine 10MG TABLET PO SCH (08:44)
[2016-06-06] MEDS ORDERED: TRAZO50TA PO (10:57)
[2016-06-06] MEDS ORDERED: PARO5TAB PO (10:57)
[2016-06-06] MEDS ORDERED: HYDRO50TAB PO (10:57)
[2016-06-06] MEDS ORDERED: BENA25TA9 PO (11:03)
[2016-06-06] MEDS ORDERED: ZYRT10CA PO (11:03)
--- NOTE | 2016-06-06 11:56 | DS.PDOC ---
[facility] Discharge Summary Discharge Summary DATE OF ADMISSION: May 27, 2016 at 16:18 DATE OF DISCHARGE: Jun 06, 2016 HISTORY: "Me just swallowing things for the longest time", My in the is hard to get help". Pt. states she told her doctor that she had suicidal ideation. Pt. states "I would never do anything, but I wouldn't mind if it just happened to me". Pt. feels her problems started when she got drunk Thursday night. Pt. does not feel that her actively listens to her. 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 Pt. states they cannot afford daycare/preschool at this time. Pt. would like to go to marital therapy with , not sure he will go. Pt. also feels her dysfunctional childhood plays a role. Pt. encouraged to work on these issues in therapy. PAST PSYCHIATRIC HISTORY: Pt. states she was diagnosed with BPD, PTSD at 12 yo after maternal grandmother's , "She raised me as my mom didn't want me". Pt. states she saw a counselor for 6 months to a year and was started on meds. Pt. states she saw 3-4 different therapists until she was admitted at age [age] to a psych unit for post depression. Pt. states this happened about 2 months after the of her daughter. Pt. denies further psychiatric help until this admission. MEDICAL HISTORY: Pt. denies, feels she is healthy. FAMILY PSYCHIATRIC HISTORY: Pt. states her mom, maternal grandma and great grandma all had been diagnosed with BPD, Anxiety. Pt. states dad has BPD, anxiety. Pt. does not know of any other familial history. SOCIAL HISTORY: Pt. is currently to her 2nd . Pt. has a 4 yo son and 2 yo daughter from this relationship. Pt. has an 8 yo son from her marriage to her first . Pt. also has a 14 yo daughter that started living with her godmother in October 2015. 8yo son was picked up by his father today to live with him for awhile in [place]. Pt. has a toxic relationship with her mom, has not spoken with her in 5 years. Pt. has a closer relationship with her dad and talks with him every few months. SUBSTANCE ABUSE HISTORY: Pt. experimented as a teen, no further use. In light of recent events may consider not drinking. LEGAL HISTORY: Pt. denies. MENTAL STATUS EXAMINATION ON DISCHARGE: Pt. is a 30 year-old female who is pleasant, cooperative, wearing her own clothing, well kempt of shorter, thin build. Speech: Is less circumstantial, at a normal rate and volume. Pt. is articulate, coherent and spontaneous. Thought processes: Clear, Goal directed. Rate of thoughts: Normal Thought content: Logical, rational. Abstract reasoning: Adequate. Computation:Adequate. Associations: Intact. Abnormal or psychotic thoughts: Pt. denies hallucinations, delusions, paranoia, homicidal or suicidal ideation and obsessions or compulsions. Usually has night terrors 6/7 nights. None reported for last 2 nights. Pt. reports she slept well , about 6 hours and felt rested this morning. Judgment: Fair-good. Insight: Fair to good. Oriented to: Time, place, person and surroundings. Recent and Remote Memory: Pt. feels she has some issues with immediate and short -term memory, worse when stressed or with lack of sleep. Attention Span and Concentration: Good. Language: Normal. Fund of knowledge: Adequate. Mood: "I skipped down the hallway, I'm good"; Pt. feels baseline is 4-5/10 for depression and anxiety. Pt. states this revolves around issues with her . Affect: Appropriate, rational, logical even when discussing her . VITAL SIGNS: Please see below. 98.6 97 16 117/62 HOSPITAL COURSE: Pt. is noted to be out of her room, engaging with others on the unit. Pt. has continued to attend unit programming and activities. Patient is walking to help with anxiety. Pt. states she continues to feel she is having a good response to paxil. Pt. reports feeling more like herself every day, not stressed out by everything, is able to walk away from drama and not feel like she has to solve it herself. Patient denies all suicidal and homicidal ideation. Patient denies psychotic features such as hallucinations, delusions, paranoia, obsessions or compulsions. Pt. does report feeling preoccupied with questions about her marital relationship, for her to answer so they can discuss. Patient states she is ready for discharge [place] , pt. is in agreement with this. LABORATORY DATA: please see below. NA CONDITION ON DISCHARGE: Stable, no suicidal or homicidal ideation. DIAGNOSES ON DISCHARGE: 1. Bipolar disorder, depressive type 2. PTSD 3. Insomnia MEDICATIONS ON DISCHARGE: See below. Paxil 10 mg po q am, Hydroxyzine Hcl 50 mg po q 6h prn anxiety/agitation, Trazodone 50 mg po qhs prn for insomnia, may repeat x 1. PLAN/FOLLOWUP ARRANGEMENTS: Pt. to continue paroxetine 10 mg po q am, hydroxyzine hcl, 50 mg po q 6 h prn for anxiety/agitation, Trazodone 100 mg po qhs prn sleep, may use 1/2 tab. Pt. 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 The amount of time spent in the coordination of care for this patient was approximately 25 minutes. Vital Signs Vital Sign - Last 24 Hours 06/05/16 06/06/16 18:00 06:58 Temp 96.8 98.6 Pulse 79 97 Resp 14 16 B/P 128/75 117/62 Medications Scheduled Cetirizine HCl (Zyrtec Allergy) 10 Mg Cap 10 MG PO DAILY allergies (Reported) Paroxetine (Paroxetine HCl) 5 Mg Halftab #7 10 MG PO QAM ANXIETY Scheduled PRN Diphenhydramine Hcl (Benadryl Allergy) 25 Mg Tab 25 MG PO Q6HP PRN PRN ITCHING ( Reported) Hydroxyzine HCl (Hydroxyzine HCl) 50 Mg Tab #20 50 MG PO Q6HP PRN PRN ANXIETY Trazodone HCl (Trazodone HCl) 50 Mg Tab #7 100 MG PO QHSP PRN PRN INSOMNIA May use 1/2 tab Allergies Coded Allergies: Pineapple (Verified Allergy, Intermediate, Swollen tongue, sore throat, ) Morphine (Unverified Allergy, Unknown, HIVES, 05/27/16) JAX MURDOCK NP Jun 06, 2016 11:56 06/05/16 06/06/16 18:00 06:58 Temp 96.8 98.6 Pulse 79 97 Resp 14 16 B/P 128/75 117/62 Medications Scheduled Cetirizine HCl (Zyrtec Allergy) 10 Mg Cap 10 MG PO DAILY allergies (Reported) Paroxetine (Paroxetine HCl) 5 Mg Halftab #7 10 MG PO QAM ANXIETY Scheduled PRN Diphenhydramine Hcl (Benadryl Allergy) 25 Mg Tab 25 MG PO Q6HP PRN PRN ITCHING ( Reported) Hydroxyzine HCl (Hydroxyzine HCl) 50 Mg Tab #20 50 MG PO Q6HP PRN PRN ANXIETY Trazodone HCl (Trazodone HCl) 50 Mg Tab #7 100 MG PO QHSP PRN PRN INSOMNIA May use 1/2 tab Allergies Coded Allergies: Pineapple (Verified Allergy, Intermediate, Swollen tongue, sore throat, ) Morphine (Unverified Allergy, Unknown, HIVES, 05/27/16) JAX MURDOCK NP Jun 06, 2016 11:56
== END 2016-06-06 12:00 | disposition home or self-care (01) | DRG 885 ==
LOC: M ED 11:18 → M PSY 16:18
PROVIDERS: ADMIT Psychiatry & Neurology Psychiatry; ATTEND Psychiatry & Neurology Psychiatry
DX: F31.9 Bipolar disorder, unspecified (principal); F43.10 Post-traumatic stress disorder, unspecified; F17.200 Nicotine dependence, unspecified, uncomplicated; F12.90 Cannabis use, unspecified, uncomplicated

== ENCOUNTER 2016-07-01 20:16 | Emergency (ER) | payer OTHER ==
[~2016-07-01 20:16] MED LIST: BENA25TA9 PO; HYDRO50TAB PO; IBUPOTC PO; PARO5TAB PO; TRAZO50TA PO; ZYRT10CA PO
[2016-07-01 20:58] LABS: MEAN CORPUSCULAR HEMOGLOBIN 28.5 pg (27.0-33.0); MEAN CORPUSCULAR HGB CONC 32.6 g/dl (32.0-36.5); MEAN CORPUSCULAR VOLUME 87.4 fl (80.0-96.0); RED CELL DISTRIBUTION WIDTH 13.8 % (11.5-14.5); WHITE BLOOD COUNT 7.3 K/mm3 (4.0-10.0)
[2016-07-01 21:04] LABS: AMPHETAMINES LEVEL URINE NEGATIVE (NEGATIVE); BENZODIAZEPINES URINE NEGATIVE (NEGATIVE); COCAINE METABOLITE URINE NEGATIVE (NEGATIVE); CONTROL LINE INT CTR LINE PRESENT; METHADONE URINE NEGATIVE (NEGATIVE); OPIATES URINE NEGATIVE (NEGATIVE); TRICYCLIC ANTIDEPRESS URINE NEGATIVE (NEGATIVE)
[2016-07-01 21:16] LABS: CONTROL LINE HCG INT CTR LINE PRESENT
[2016-07-01 21:33] LABS: ALBUMIN 3.5 GM/DL (3.2-5.2); ALBUMIN/GLOBULIN RATIO 1.09 (1.00-1.93); ALKALINE PHOSPHATASE 74 U/L (45-117); ALT/SGPT 18 U/L (12-78); ANION GAP 9 MEQ/L (8-16); AST/SGOT 13 U/L (15-37); BILIRUBIN,DIRECT 0.1 MG/DL (0.0-0.2); BILIRUBIN,TOTAL 0.4 MG/DL (0.2-1.0); BLOOD UREA NITROGEN 8 MG/DL (7-18); CALCIUM LEVEL 8.4 MG/DL (8.5-10.1); CARBON DIOXIDE LEVEL 25 MEQ/L (21-32); CHLORIDE LEVEL 107 MEQ/L (98-107); CREATININE FOR GFR 0.65 MG/DL (0.55-1.02); GLOMERULAR FILTRATION RATE > 60.0 (>60); GLUCOSE, FASTING 94 MG/DL (70-105); POTASSIUM SERUM 3.5 MEQ/L (3.5-5.1); SODIUM LEVEL 141 MEQ/L (136-145); TOTAL PROTEIN 6.7 GM/DL (6.4-8.2)
--- NOTE | 2016-07-02 08:29 | EDDOCDS ---
Physician Documentation [facility] Name: Lilibeth Mcneill Age: 30 yrs Sex: Female : 1985 Arrival Date: 07/01/2016 Time: 20:16 Bed OBSERVATION Private MD: Disposition: 07/02/16 06:37 Transfer ordered to [facility]. Diagnosis is Major depressive disorder, single episode. - Reason for transfer: Higher level of care. - Accepting physician is Dr. Zacarias. - Condition is Stable. - Problem is new. - Symptoms are unchanged. Historical: - Allergies: Morphine (Hives, Swelling); - Home Meds: 1. trazodone 100 mg Oral tab daily 2. hydroxyzine HCl 50 mg Oral tab 1 tab 4 times per day 3. Paxil 5mg Oral once daily 4. Zyrtec 10 mg Oral tab 1 tab once daily - PMHx: Anxiety; Bipolar disorder; Depression; - PSHx: ; Lumpectomy- Left; - Social history: Smoking status: Patient uses tobacco products, heavy tobacco smoker. No barriers to communication noted, The patient speaks fluent [place], Speaks appropriately for age. - Family history: Not pertinent. - : The pt / caregiver states he / she is not on anticoagulants. Home medication list is obtained from the patient, a discharge med list. - Exposure Risk Screening:: None identified. - Tetanus status: less than 5 years. 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 1 in. mas (154.94 cm); Pain 0/10; 21:40 BP 123 / 83; Pulse 68; Resp 18; Pulse Ox 97% ; Pain 0/10; mas 07/02 05:41 BP 112 / 70; Pulse 69; Resp 16; Temp 98.2(T); Pulse Ox 98% ; Pain 0/10; mas 08:27 BP 118 / 68; Pulse 64; Resp 18; Temp 98.0(T); Pulse Ox 99% on R/A; Pain 0/10; dwg MDM: 07/01 20:26 Consult PFS/PSA/Wheelman ordered. br1 20:26 Consult PFS/PSA/Wheelman: Patient's case requires discussion with on-call [facility] Psychiatrist ordered. 20:26 PSA/PFS to call Nursing Massage Therapy Instructor, to enter patient data on [place] Safe Act if patient br1 involuntarily admitted or transferred for SI or HI ordered. 20:26 Confirm accurate psychiatric medication list and times of last dosage ordered. br1 20:26 Detain Pt Until Medically/PFS Cleared ordered. br1 20:28 Acetaminophen Level Ordered. EDMS 20:28 Basic Metabolic Profile Ordered. EDMS 20:28 Complete Blood Count Ordered. EDMS 20:28 Drug Eval Toxicology ED Only Ordered. EDMS 20:28 Ethyl Alcohol (ethanol) Ordered. EDMS 20:28 HCG,Serum Qualitative Ordered. EDMS 20:28 Liver Profile Ordered. EDMS 20:28 Salicylate Level Ordered. EDMS 20:28 Thyroid Stimulating Hormone Ordered. EDMS 20:32 Recheck B/P ordered. br1 20:47 Consult PFS/PSA/Wheelman complete. bcj 20:47 Consult PFS/PSA/Wheelman: Patient's case requires discussion with on-call [facility] Psychiatrist complete. 21:36 Acetaminophen Level Reviewed. br1 21:36 Basic Metabolic Profile Reviewed. br1 21:36 Complete Blood Count Reviewed. br1 21:36 Drug Eval Toxicology ED Only Reviewed. br1 21:36 Ethyl Alcohol (ethanol) Reviewed. br1 21:36 Liver Profile Reviewed. br1 21:36 Salicylate Level Reviewed. br1 21:36 HCG,Serum Qualitative Reviewed. br1 21:36 Thyroid Stimulating Hormone Reviewed. br1 21:48 PSA/PFS to call Nursing Massage Therapy Instructor, to enter patient data [place] Safe [place] if patient bcj involuntarily admitted or transferred for SI or HI complete. 21:50 Consult PFS/PSA/Socail Worker: Cleared medically for eval ordered. br1 21:53 Consult PFS/PSA/Socail Worker: Cleared medically for eval complete. cl 07/02 02:08 Financial registration complete. hs2 02:21 [facility] Payment Agreement was scanned into [employer] and attached to record. hs2 04:21 REGULAR DIET PLASTIC TEJEDA+DIET ordered. EDMS 06:37 [facility] Legal paperwork was scanned into [employer] and attached to record. cl Signatures: Dispatcher [employer] Rian Reid RN RN dwg Johnson, Bruce, RN RN bcj Lavin, Cesar, PSA PSA cl Tyler Ashley MD MD br1 Adalgisa Mendieta, Reg Reg hs2 The chart was reviewed and I authenticate all verbal orders and agree with the evaluation and treatment provided.Attachments: 02:21 [facility] Payment Agreement hs2 MTDD
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
--- NOTE | 2016-07-04 09:30 | EDDOCDS ---
Physician Documentation [facility] Name: Lilibeth Mcneill Age: 30 yrs Sex: Female : 1985 Arrival Date: 07/01/2016 Time: 20:16 Bed OBSERVATION Private MD: Disposition: 07/02/16 06:37 Transfer ordered to [facility]. Diagnosis is Major depressive disorder, single episode. - Reason for transfer: Higher level of care. - Accepting physician is Dr. Zacarias. - Condition is Stable. - Problem is new. - Symptoms are unchanged. Historical: - Allergies: Morphine (Hives, Swelling); - Home Meds: 1. trazodone 100 mg Oral tab daily 2. hydroxyzine HCl 50 mg Oral tab 1 tab 4 times per day 3. Paxil 5mg Oral once daily 4. Zyrtec 10 mg Oral tab 1 tab once daily - PMHx: Anxiety; Bipolar disorder; Depression; - PSHx: ; Lumpectomy- Left; - Social history: Smoking status: Patient uses tobacco products, heavy tobacco smoker. No barriers to communication noted, The patient speaks fluent Wolof, Speaks appropriately for age. - Family history: Not pertinent. - : The pt / caregiver states he / she is not on anticoagulants. Home medication list is obtained from the patient, a discharge med list. - Exposure Risk Screening:: None identified. - Tetanus status: less than 5 years. 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 1 in. mas (154.94 cm); Pain 0/10; 21:40 BP 123 / 83; Pulse 68; Resp 18; Pulse Ox 97% ; Pain 0/10; mas 07/02 05:41 BP 112 / 70; Pulse 69; Resp 16; Temp 98.2(T); Pulse Ox 98% ; Pain 0/10; mas 08:27 BP 118 / 68; Pulse 64; Resp 18; Temp 98.0(T); Pulse Ox 99% on R/A; Pain 0/10; dwg MDM: 07/01 20:26 Consult PFS/PSA/Director Cardiac ordered. br1 20:26 Consult PFS/PSA/Director Cardiac: Patient's case requires discussion with on-call [facility] Psychiatrist ordered. 20:26 PSA/PFS to call Nursing Sole Assessor, to enter patient data on [place] Safe Act if patient br1 involuntarily admitted or transferred for SI or HI ordered. 20:26 Confirm accurate psychiatric medication list and times of last dosage ordered. br1 20:26 Detain Pt Until Medically/PFS Cleared ordered. br1 20:28 Acetaminophen Level Ordered. EDMS 20:28 Basic Metabolic Profile Ordered. EDMS 20:28 Complete Blood Count Ordered. EDMS 20:28 Drug Eval Toxicology ED Only Ordered. EDMS 20:28 Ethyl Alcohol (ethanol) Ordered. EDMS 20:28 HCG,Serum Qualitative Ordered. EDMS 20:28 Liver Profile Ordered. EDMS 20:28 Salicylate Level Ordered. EDMS 20:28 Thyroid Stimulating Hormone Ordered. EDMS 20:32 Recheck B/P ordered. br1 20:47 Consult PFS/PSA/Director Cardiac complete. bcj 20:47 Consult PFS/PSA/Director Cardiac: Patient's case requires discussion with on-call [facility] Psychiatrist complete. 21:36 Acetaminophen Level Reviewed. br1 21:36 Basic Metabolic Profile Reviewed. br1 21:36 Complete Blood Count Reviewed. br1 21:36 Drug Eval Toxicology ED Only Reviewed. br1 21:36 Ethyl Alcohol (ethanol) Reviewed. br1 21:36 Liver Profile Reviewed. br1 21:36 Salicylate Level Reviewed. br1 21:36 HCG,Serum Qualitative Reviewed. br1 21:36 Thyroid Stimulating Hormone Reviewed. br1 21:48 PSA/PFS to call Nursing Sole Assessor, to enter patient data [place] Safe [place] if patient bcj involuntarily admitted or transferred for SI or HI complete. 21:50 Consult PFS/PSA/Socail Worker: Cleared medically for eval ordered. br1 21:53 Consult PFS/PSA/Socail Worker: Cleared medically for eval complete. cl 07/02 02:08 Financial registration complete. hs2 02:21 [facility] [place] Agreement was scanned into [email or web address] and attached to record. hs2 04:21 REGULAR DIET PLASTIC TEJEDA+DIET ordered. EDMS 06:37 [facility] Legal paperwork was scanned into [email or web address] and attached to record. cl Signatures: Dispatcher [employer] Rian Reid RN RN dwg Johnson, Bruce, RN RN bcj Lavin, Cesar, PSA PSA cl Tyler Ashley MD MD br1 Adalgisa Mendieta, Reg Reg hs2 The chart was reviewed and I authenticate all verbal orders and agree with the evaluation and treatment provided.Attachments: 02:21 [facility] Payment Agreement hs2 Chart Complete MTDD
--- NOTE | 2016-07-04 09:30 | EDDOCDS ---
Physician Documentation [facility] Name: Lilibeth Mcneill Age: 30 yrs Sex: Female : 1985 Arrival Date: 07/01/2016 Time: 20:16 Bed OBSERVATION Private MD: Disposition: 07/02/16 06:37 Transfer ordered to [facility]. Diagnosis is Major depressive disorder, single episode. - Reason for transfer: Higher level of care. - Accepting physician is Dr. Zacarias. - Condition is Stable. - Problem is new. - Symptoms are unchanged. Historical: - Allergies: Morphine (Hives, Swelling); - Home Meds: 1. trazodone 100 mg Oral tab daily 2. hydroxyzine HCl 50 mg Oral tab 1 tab 4 times per day 3. Paxil 5mg Oral once daily 4. Zyrtec 10 mg Oral tab 1 tab once daily - PMHx: Anxiety; Bipolar disorder; Depression; - PSHx: ; Lumpectomy- Left; - Social history: Smoking status: Patient uses tobacco products, heavy tobacco smoker. No barriers to communication noted, The patient speaks fluent Estonian, Speaks appropriately for age. - Family history: Not pertinent. - : The pt / caregiver states he / she is not on anticoagulants. Home medication list is obtained from the patient, a discharge med list. - Exposure Risk Screening:: None identified. - Tetanus status: less than 5 years. 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 1 in. mas (154.94 cm); Pain 0/10; 21:40 BP 123 / 83; Pulse 68; Resp 18; Pulse Ox 97% ; Pain 0/10; mas 07/02 05:41 BP 112 / 70; Pulse 69; Resp 16; Temp 98.2(T); Pulse Ox 98% ; Pain 0/10; mas 08:27 BP 118 / 68; Pulse 64; Resp 18; Temp 98.0(T); Pulse Ox 99% on R/A; Pain 0/10; dwg MDM: 07/01 20:26 Consult PFS/PSA/[employer] Supervisor ordered. br1 20:26 Consult PFS/PSA/[employer] District Supervisor: Patient's case requires discussion with on-call [facility] Psychiatrist ordered. 20:26 PSA/PFS to call Nursing Client Success Director, to enter [place] data [place] if patient br1 involuntarily admitted or transferred for SI or HI ordered. 20:26 Confirm accurate psychiatric medication list and times of last dosage ordered. br1 20:26 Detain Pt Until Medically/PFS Cleared ordered. br1 20:28 Acetaminophen Level Ordered. EDMS 20:28 Basic Metabolic Profile Ordered. EDMS 20:28 Complete Blood Count Ordered. EDMS 20:28 Drug Eval Toxicology ED Only Ordered. EDMS 20:28 Ethyl Alcohol (ethanol) Ordered. EDMS 20:28 HCG,Serum Qualitative Ordered. EDMS 20:28 Liver Profile Ordered. EDMS 20:28 Salicylate Level Ordered. EDMS 20:28 Thyroid Stimulating Hormone Ordered. EDMS 20:32 Recheck B/P ordered. br1 20:47 Consult PFS/PSA/Pet[employer] District Supervisor complete. bcj 20:47 Consult PFS/PSA/[employer] District Supervisor: Patient's case requires discussion with on-call [facility] Psychiatrist complete. 21:36 Acetaminophen Level Reviewed. br1 21:36 Basic Metabolic Profile Reviewed. br1 21:36 Complete Blood Count Reviewed. br1 21:36 Drug Eval Toxicology ED Only Reviewed. br1 21:36 Ethyl Alcohol (ethanol) Reviewed. br1 21:36 Liver Profile Reviewed. br1 21:36 Salicylate Level Reviewed. br1 21:36 HCG,Serum Qualitative Reviewed. br1 21:36 Thyroid Stimulating Hormone Reviewed. br1 21:48 PSA/PFS to call Nursing Client Success Director, to [place] data [place] if patient bcj involuntarily admitted or transferred for SI or HI complete. 21:50 Consult PFS/PSA/Socail Worker: Cleared medically for eval ordered. br1 21:53 Consult PFS/PSA/Socail Worker: Cleared medically for eval complete. cl 07/02 02:08 Financial registration complete. hs2 02:21 [facility] [place] Agreement was scanned into [employer] and attached to record. hs2 04:21 REGULAR DIET PLASTIC TEJEDA+DIET ordered. EDMS 06:37 [facility] Legal paperwork was scanned into [employer] and attached to record. cl Signatures: Dispatcher [employer] Rian Reid RN RN dwg Johnson, Bruce, RN RN bcj Lavin, Cesar, PSA PSA cl Tyler Aslhey MD MD br1 Adalgisa Mendieta, Reg Reg hs2 The chart was reviewed and I authenticate all verbal orders and agree with the evaluation and treatment provided.Attachments: 02:21 [facility] Payment Agreement hs2 Chart Complete MTDD
== END 2016-07-02 08:29 ==
LOC: M ED 20:16
DX: F32.9 Major depressive disorder, single episode, unspecified (principal); S50.812A Abrasion of left forearm, initial encounter; X78.9XXA Intentional self-harm by unspecified sharp object, initial encounter; Y92.89 Other specified places as the place of occurrence of the external cause; F41.9 Anxiety disorder, unspecified; F17.200 Nicotine dependence, unspecified, uncomplicated; Z79.899 Other long term (current) drug therapy; Z88.5 Allergy status to narcotic agent
CPT/HCPCS: 36415; 80048; 80076; 80306; 84443; 84703; 85027; 99285; G0480